=== PATIENT | male | born 1970 | race Caucasian/White ===

== ENCOUNTER → 2020-03-20 | Outpatient (CLI) | payer OTHER ==
--- NOTE | 2020-03-20 15:08 | CARD ---
MR#: [id number] Date of Study: 03/20/2020 Ordering Physician: MARIE CARRION, Referring Physician: MARIE CARRION, Tech: Verona Larson, CS APPROVED REPORT INDICATION Chest Pain Reason : Patient complained of pain PROCEDURE The patient underwent an Exercise Stress Test using the Sridhar Protocol. Blood pressure, heart rate, a nd EKG were monitored. An Echocardiogram was performed by plant technician/control room operator in four stages in quad fashion. At peak stress four se lected images were obtained and placed side by side with resting images for comparison. STRESS ECHO FINDINGS The resting Echocardiogram showed normal left ventricular systolic contractility with an estimated Ej ection Fraction of about 55 %. The Resting Echocardiogram showed normal augmentation of myocardial wall segments using a 16 segment model. The Stress Echocardiogram showed normal augmentation of myocardial wall segments using a 16 segment m morro. The Stress Echocardiogram left ventricular systolic contractility has an estimated Ejection Fraction of about 70%. Test Type: Exercise Stress Nurse/Tech: Cait Nguyen RN Test Indications: CP Cardiac History and Allergies: No known cardiac Medications: see EMR Medical History: see EMR Resting ECG: SR Resting Heart Rate: 80 bpm Resting Blood Pressure: 164/82mmHg Pretest Chest Pain: None Nurse/Tech Notes S1S2, lungs clear to auscultation. Patient states his shoulder pain is r/t rotator cuff injury. Stress Symptoms No chest pain or symptoms. POST EXERCISE Reason for Termination: Reached target heart rate, Fatigue Target HR: Yes Max HR: 172 bpm 101% of Maximum Predicted HR: 170 bpm Exercise duration: 11:19 min:sec, 4 Stage Exercise capacity: 12.8METs Max Blood Pressure: 199/86mmHg Blood Pressure response to exercise: Normal blood pressure response during stress. Heart Rate response to exercise: WNL Chest Pain: No. Arrhythmia: Yes. PVC ST Change: No. INTERPRETATION Stress EKG Conclusion: The resting EKG shows a sinus rhythm and slight nonspecific ST segment changes . The stress EKG shows no significant changes from baseline. No EKG evidence of stress-induced ischemia. Preliminary Notification Critical Value: No <Conclusion> Excellent exercise tolerance with the patient walking for 11 minutes and 19 seconds on a Sridhar protoc ol. No reported chest pain. No EKG evidence of stress-induced ischemia or arrhythmias. Normal LV systolic function at rest. Normal LV systolic response to exertion with no regional wall motion abnormalities. Low risk treadmill stress echo. Signed by : Jeremy Bundy MD Electronically Approved : 03/20/2020 15:07:58
== END ==
LOC: ECHO 12:53
PROVIDERS: ATTEND Internal Medicine Cardiovascular Disease
DX: R07.9 Chest pain, unspecified (principal)
CPT/HCPCS: 93017; 93350